=== PATIENT | female | born 1995 | race Caucasian/White ===

== ENCOUNTER 2022-06-25 16:29 | Outpatient (CLI) | payer BC, SELFPAY ==
[2022-06-25 17:09] LABS: Alanine Aminotransferase 20 U/L (6-35); Albumin Level 4.2 g/dL (3.5-5.1); Alkaline Phosphatase 51 U/L (38-126); Aspartate Amino Transferase 33 U/L (14-36); Bilirubin,Total 0.8 mg/dL (0.2-1.3)
== END 2022-06-25 16:30 | disposition home or self-care (01) ==
LOC: ANHLAB 16:31
PROVIDERS: PCP Family Medicine; Visit Provider Nurse Practitioner Family
DX: B35.3 Tinea pedis (principal); B35.1 Tinea unguium
CPT/HCPCS: 36415; 80076

== ENCOUNTER 2022-07-25 07:26 | Outpatient (CLI) | payer BC, SELFPAY ==
--- NOTE | ~2022-07-25 | MR_ITS ---
EXAMINATION: MR brain/brain stem wo con DATE: 07/25/2022 08:00 INDICATION: Migraine headache. TECHNIQUE: Magnetic resonance imaging (MRI) of the brain and brainstem was performed without intraven ous contrast. COMPARISON: None. FINDINGS: There is no acute intracranial hemorrhage, acute ischemic infarct, or abnormal mass lesion. The ventricles are normal in size. The orbits are normal. The mastoid air cells are normal. The para nasal sinuses are clear. IMPRESSION: 1. Normal brain. Reviewed, dictated and finalized at location A. TGENOLOGY TEACHER IMPRESSION: 1. Normal brain.
== END 2022-07-25 07:27 ==
PROVIDERS: PCP Family Medicine; Visit Provider Nurse Practitioner Family
DX: G43.909 Migraine, unspecified, not intractable, without status migrainosus (principal)
CPT/HCPCS: 70551

== ENCOUNTER 2022-09-13 09:07 | Outpatient (CLI) | payer BC, SELFPAY ==
[2022-09-13 10:01] LABS: Alanine Aminotransferase 22 U/L (6-35); Alkaline Phosphatase 61 U/L (38-126); Aspartate Amino Transferase 29 U/L (14-36); Bilirubin,Total 0.4 mg/dL (0.2-1.3)
== END 2022-09-13 09:08 | disposition home or self-care (01) ==
PROVIDERS: PCP Family Medicine; Visit Provider Nurse Practitioner Family
DX: B35.3 Tinea pedis (principal); B35.1 Tinea unguium
CPT/HCPCS: 36415; 80076

== ENCOUNTER 2022-12-20 13:51 | Outpatient (CLI) | payer BC, SELFPAY ==
[2022-12-20 15:23] LABS: Alanine Aminotransferase 17 U/L (6-35); Albumin Level 4.2 g/dL (3.5-5.1); Alkaline Phosphatase 58 U/L (38-126); Anion Gap 6 mmol/L (8-16); Aspartate Amino Transferase 25 U/L (14-36); Bilirubin,Total 0.7 mg/dL (0.2-1.3); Blood Urea Nitrogen 15 mg/dL (7-17); Calcium 8.7 mg/dL (8.4-10.2); Carbon Dioxide 28 mmol/L (22-30); Chloride 104 mmol/L (98-107); Cholesterol 167 mg/dL (0-200); Estimated Glomerular Filt Rate > 60; Glucose 91 mg/dL (65-110); HDL Direct 47 mg/dL; Potassium 3.5 mmol/L (3.4-5.0); Sodium 138 mmol/L (137-145); Triglycerides 121 mg/dL (<150)
[2022-12-20 15:26] LABS: Basophils Percent Auto 0.6 % (0.2-1.2); Eosinophils Absolute Auto 0.1 K/mm3 (0-0.3); Eosinophils Percent Auto 1.8 % (0-4.4); Hematocrit 41.9 % (37.0-47.0); Hemoglobin 13.8 g/dL (12.0-15.0); Immature Granulocyte Absolute 0.01 K/mm3 (0.00-0.031); Immature Granulocyte Percent A 0.2 % (0-0.5); Lymphocytes Absolute Auto 1.53 K/mm3 (0.9-3.2); Lymphocytes Percent Auto 30.7 % (18.3-44.2); Mean Corpuscular HGB Conc 32.9 g/dl (32-36); Mean Corpuscular Hemoglobin 31.2 pg (26-34); Mean Corpuscular Volume 94.8 fl (80-100); Mean Platelet Volume 10.5 fl (7.4-10.4); Monocytes Absolute Auto 0.5 K/mm3 (0.1-0.6); Monocytes Percent Auto 10.2 % (2.6-8.5); Neutrophils Absolute Auto 2.8 K/mm3 (1.3-6.7); Neutrophils Percent Auto 56.5 % (45.5-73.1); Platelet Count Result 232 k/mm3 (150-375); Red Blood Count 4.42 M/mm3 (4.2-5.4); Red Cell Distribution Width 11.7 % (11.5-14.5)
[2022-12-20 15:36] LABS: LDL Cholesterol Direct 95 mg/dL
[2022-12-20 16:37] LABS: Folic Acid 12.1 ng/mL (2.76->20)
[2022-12-20 16:41] LABS: Free T4 Free Thyroxine 1.39 ng/mL (0.78-2.19)
== END 2022-12-20 13:52 | disposition home or self-care (01) ==
LOC: ANHLAB 13:54
PROVIDERS: PCP Family Medicine; Visit Provider Family Medicine Sports Medicine
DX: Z00.00 Encounter for general adult medical examination without abnormal findings (principal); R51.9 Headache, unspecified; R63.5 Abnormal weight gain; B35.1 Tinea unguium; H92.03 Otalgia, bilateral; R35.0 Frequency of micturition
CPT/HCPCS: 36415; 80053; 80061; 82607; 82746; 84439; 84443; 85025

== ENCOUNTER 2024-08-22 09:58 | Outpatient (CLI) | payer BC, SELFPAY ==
--- NOTE | ~2024-08-22 | US_ITS ---
EXAMINATION: US OB <=14 wk fetus w TV INDICATION: Z34.90 - Encounter for supervision of normal , u... TECHNIQUE: Sonography of the pelvis was performed by transabdominal and transvaginal techniques. COMPARISON: None. RESULT: Uterus: 9.3 x 4.6 x 5.4 cm. Anteverted. Homogenous myometrium. Intrauterine gestational sac: Single present. Mean Sac Diameter: cm, corresponding gestational age w telida days. Yolk sac: 0.4 cm . Embryo: Single present. [place] rump length: 1.2 cm, corresponding gestational age 7 weeks, 3 days. G estational heart rate: present 142 bpm. Subgestational hematoma: 1.9 x 0.6 x 0.8 cm hypoechoic area adjacent to the gestational sac . Right ovary: 2.6 x 2.7 x 3.2 cm. Vascular flow is present. No adnexal mass. Left ovary: 2.4 x 1.5 x 1.9 cm. Vascular flow is present. No adnexal mass. Pelvis free fluid: None. IMPRESSION: Single, live intrauterine gestation. Estimated Gestational Age: 7 weeks, 3 days by crown rump length. BEE by ultrasound 04/07/2025. Small subgestational hematoma. Reviewed, dictated and finalized at location K. ENGER ATTENDANT IMPRESSION: Single, live intrauterine gestation. Estimated Gestational Age: 7 weeks, 3 days by crown rump length. BEE by ultras ound 04/07/2025. Small subgestational hematoma.
== END 2024-08-22 09:59 | disposition home or self-care (01) ==
LOC: MICIMG 10:04
PROVIDERS: PCP Family Medicine; Visit Provider Obstetrics & Gynecology
DX: Z34.90 Encounter for supervision of normal pregnancy, unspecified, unspecified trimester (principal); Z3A.00 Weeks of gestation of pregnancy not specified
CPT/HCPCS: 76801; 76817

== ENCOUNTER 2024-08-27 10:03 | Outpatient (CLI) | payer BC, SELFPAY ==
--- OUTSIDE RECORDS SUMMARY | 2024-08-27 10:27 | XMS_ITS | Patient Health Summary ---
Author Organization [facility] [employer] Address [address] [place] [address] Care Team Providers Care Plate Filler Name Role Phone Unavailable Primary Care Provider Unavailabl e Note from [facility],non-owned Affiliates and Associated Physician Practices is amultiple site organization consisting of ambulatory clinics and hospital sitesin [place], [place], [place] and [place]. This disclosure is being madepursuant to the Care Everywhere program and may not contain all information available regarding this patient. Last updated 18.[facility] [employer] Allergies No known active allergies Medications * Be aware that medications may not be up to date on this document. Alwaysverify current medications with the patient. * ondansetron (Zofran) 4 MG tablet(Started 08/01/2024) Take 1 (one) tablet by mouth every 6 hours as needed for Nausea/Vomiting Social History Tobacco Use Types Packs/Day Years Used Date Smoking Tobacco: Never Assessed Comments Yes Sex and Gender Information Value Date Recorded Sex Assigned at Not on file Gender Identity Not on file Sexual Orientation Not on file Last Filed Vital Signs Vital Sign Reading Time Taken Comments Blood Pressure 121/85 08/01/2024 9:00 AM RADIOLOGY EQUIPMENT SERVICER Pulse 72 08/01/2024 9:00 AM RADIOLOGY EQUIPMENT SERVICER Temperature 37.2 C (99 F) 08/01/2024 8:23 AM RADIOLOGY EQUIPMENT SERVICER Respiratory Rate 20 08/01/2024 9:00 AM RADIOLOGY EQUIPMENT SERVICER Oxygen Saturation 98% 08/01/2024 9:00 AM RADIOLOGY EQUIPMENT SERVICER Inhaled Oxygen Concentration - - Weight 90.7 kg (200 lb) 08/01/2024 8:23 AM RADIOLOGY EQUIPMENT SERVICER Height 170.2 cm (5' 7 ) 08/01/2024 8:23 AM RADIOLOGY EQUIPMENT SERVICER Body Mass Index 31.32 08/01/2024 8:23 AM RADIOLOGY EQUIPMENT SERVICER Procedures * URINALYSIS REFLEX MICROSCOPIC REFLEX CULTURE(Performed 08/01/2024) * HCG BLOOD QUALITATIVE(Performed 08/01/2024) Results * (ABNORMAL) URINALYSIS REFLEX MICROSCOPIC REFLEX CULTURE (08/01/2024 11:06 AM RADIOLOGY EQUIPMENT SERVICER) Color UA Yellow Yellow, Straw 08/01/2024 11:14 AM [facility] Clarity UA Clear Clear 08/01/2024 11:14 AM [facility] Glucose UA Normal Normal 08/01/2024 11:14 AM [facility] Bilirubin UA Negative Negative 08/01/2024 11:14 AM [facility] Ketone UA Trace(A) Negative 08/01/2024 11:14 AM [facility] Specific [place] UA 1.022 1.005 - 1.030 08/01/2024 11:14 AM [facility] Blood UA Negative Negative 08/01/2024 11:14 AM [facility] pH UA 6.5 5.0 - 9.0 pH 08/01/2024 11:14 AM [facility] Protein UA Negative Negative 08/01/2024 11:14 AM [facility] Urobilinogen UA Normal Normal mg/dL 025 11:14 AM [facility] Nitrite UA Negative Negative 08/01/2024 11:14 AM [facility] Leukocyte UA Negative Negative 08/01/2024 11:14 AM [facility] Urine URINE SPECIMEN OBTAINED BY CLEAN CATCH PROCEDURE / Unknown Collection / Unknown 08/01/2024 11:06 AM RADIOLOGY EQUIPMENT SERVICER 08/01/2024 11:10 AM [facility] Narrative [facility] - 08/01/2024 11:14 AM RADIOLOGY EQUIPMENT SERVICER Preet Kelly MD LAB - URINALYS IS ORDERABLES [facility] [address] [place] [address] * (ABNORMAL) HCG BLOOD QUALITATIVE (08/01/2024 8:50 AM RADIOLOGY EQUIPMENT SERVICER) HCG Qual Serum Positive(A ) Negative 08/01/2024 9:05 AM [facility] Blood BLOOD SPECIMEN / Unknown Venipuncture / Unknown 08/01/2024 8:50 AM RADIOLOGY EQUIPMENT SERVICER 08/01/2024 8:52 AM RADIOLOGY EQUIPMENT SERVICER Narrative [facility] - 08/01/2024 9:05 AM RADIOLOGY EQUIPMENT SERVICER Specimens containing human anti-mouse antibodies may exhibit false positive or false negative results. If qualitative interpretation is inconsistent with clinical evaluation, consider confirmation by an alternative hCG method. Preet Kelly MD LAB - CHEMISTR Y ORDERABLES Performing Organization Address City/State/[facility] Co de Phone Number [facility] [address] [place] [address]
--- OUTSIDE RECORDS SUMMARY | 2024-08-27 10:27 | XMS_ITS | Referral Summary ---
Author Organization [facility] Address [address] [place] [address] Care Team Providers Care Director Of Rooms Name Role Phone Unavailable Primary Care Provider Unavailabl e Source Comments [facility],non-owned Affiliates and Associated Physician Practices is amultiple site organization consisting of ambulatory clinics and hospital sitesin [place], [place], [place] and [place]. This disclosure is being madepursuant to the Care Everywhere program and may not contain all information available regarding this patient. Last updated 18.[facility] Encounters Date Type Department Care Team Description 08/01/2024 8:52 AM ADMINISTRATIVE OFFICE MANAGER - 08/01/2024 11:49 AM ADMINISTRATIVE OFFICE MANAGER Emergency ER at [address] [address] Preet Kelly MD at early stage (HCC) (Primary Dx) Discharge Disposition: Home or Self Care from Last 3 Months Allergies No known active allergies Medications * Be aware that medications may not be up to date on this document. Alwaysverify current medications with the patient. Medication Sig Dispensed Refills Start Date End Date Status ondansetron (Zofran) 4 MG tablet Take 1 (one) tablet by mouth every 6 hours as needed for Nausea/Vomiting 20 tablet 08/01/2024 Active Social History Tobacco Use Types Packs/Day Years Used Date Smoking Tobacco: Never Assessed Comments Yes Sex and Gender Information Value Date Recorded Sex Assigned at Not on file Gender Identity Not on file Sexual Orientation Not on file Last Filed Vital Signs Vital Sign Reading Time Taken Comments Blood Pressure 121/85 08/01/2024 9:00 AM ADMINISTRATIVE OFFICE MANAGER Pulse 72 08/01/2024 9:00 AM ADMINISTRATIVE OFFICE MANAGER Temperature 37.2 C (99 F) 08/01/2024 8:23 AM ADMINISTRATIVE OFFICE MANAGER Respiratory Rate 20 08/01/2024 9:00 AM ADMINISTRATIVE OFFICE MANAGER Oxygen Saturation 98% 08/01/2024 9:00 AM ADMINISTRATIVE OFFICE MANAGER Inhaled Oxygen Concentration - - Weight 90.7 kg (200 lb) 08/01/2024 8:23 AM ADMINISTRATIVE OFFICE MANAGER Height 170.2 cm (5' 7 ) 08/01/2024 8:23 AM ADMINISTRATIVE OFFICE MANAGER Body Mass Index 31.32 08/01/2024 8:23 AM ADMINISTRATIVE OFFICE MANAGER Plan of Treatment Not on file Procedures Procedure Name Priority Date/Time Associated Diagnosis Comments URINALYSIS REFLEX MICROSCOPIC REFLEX CULTURE STAT 08/01/2024 11:06 AM ADMINISTRATIVE OFFICE MANAGER HCG BLOOD QUALITATIVE STAT 08/01/2024 8:50 AM ADMINISTRATIVE OFFICE MANAGER from Last 3 Months Results * (ABNORMAL) URINALYSIS REFLEX MICROSCOPIC REFLEX CULTURE (08/01/2024 11:06 AM ADMINISTRATIVE OFFICE MANAGER) Color UA Yellow Yellow, Straw 08/01/2024 11:14 AM [facility] Clarity UA Clear Clear 08/01/2024 11:14 AM [facility] Glucose UA Normal Normal 08/01/2024 11:14 AM [facility] Bilirubin UA Negative Negative 08/01/2024 11:14 AM [facility] Ketone UA Trace(A) Negative 08/01/2024 11:14 AM [facility] Specific [place] UA 1.022 1.005 - 1.030 08/01/2024 11:14 AM [facility] Blood UA Negative Negative 08/01/2024 11:14 AM [facility] pH UA 6.5 5.0 - 9.0 pH 08/01/2024 11:14 AM [facility] Protein UA Negative Negative 08/01/2024 11:14 AM [facility] Urobilinogen UA Normal Normal mg/dL 025 11:14 AM [facility] Nitrite UA Negative Negative 08/01/2024 11:14 AM [facility] Leukocyte UA Negative Negative 08/01/2024 11:14 AM [facility] Urine URINE SPECIMEN OBTAINED BY CLEAN CATCH PROCEDURE / Unknown Collection / Unknown 08/01/2024 11:06 AM ADMINISTRATIVE OFFICE MANAGER 08/01/2024 11:10 AM ADMINISTRATIVE OFFICE MANAGER Narrative [facility] - 08/01/2024 11:14 AM ADMINISTRATIVE OFFICE MANAGER Preet Kelly MD LAB - URINALYS IS ORDERABLES Performing Organization Address [facility] Co de Phone Number [facility] [address] [place] [address] * (ABNORMAL) HCG BLOOD QUALITATIVE (08/01/2024 8:50 AM ADMINISTRATIVE OFFICE MANAGER) HCG Qual Serum Positive(A ) Negative 08/01/2024 9:05 AM ADMINISTRATIVE OFFICE MANAGER [facility] Blood BLOOD SPECIMEN / Unknown Venipuncture / Unknown 08/01/2024 8:50 AM ADMINISTRATIVE OFFICE MANAGER 08/01/2024 8:52 AM ADMINISTRATIVE OFFICE MANAGER Narrative [facility] - 08/01/2024 9:05 AM ADMINISTRATIVE OFFICE MANAGER Specimens containing human anti-mouse antibodies may exhibit false positive or false negative results. If qualitative interpretation is inconsistent with clinical evaluation, consider confirmation by an alternative hCG method. Preet Kelly MD LAB - CHEMISTR Y ORDERABLES Performing Organization Address [facility] Co de Phone Number [facility] [address] [place] [address] from Last 3 Months Mervat Solorio Personal/Family Self 1995
--- OUTSIDE RECORDS SUMMARY | 2024-08-27 10:27 | XMS_ITS | Clinical Summary ---
Author Organization [facility] Address [address] [place] [address] Care Team Providers Care Social Service Director Name Role Phone Unavailable Primary Care Provider Unavailabl e Source Comments [facility],non-owned Affiliates and Associated Physician Practices is amultiple site organization consisting of ambulatory clinics and hospital sitesin [place], [place], [place] and [place]. This disclosure is being madepursuant to the Care Everywhere program and may not contain all information available regarding this patient. Last updated 18.[facility] Allergies No known active allergies Medications * Be aware that medications may not be up to date on this document. Alwaysverify current medications with the patient. Medication Sig Dispensed Refills Start Date End Date Status ondansetron (Zofran) 4 MG tablet Take 1 (one) tablet by mouth every 6 hours as needed for Nausea/Vomiting 20 tablet 08/01/2024 Active Encounters Date Type Department Care Team Description 08/01/2024 8:52 AM POURED CONCRETE WALL TECHNICIAN - 08/01/2024 11:49 AM POURED CONCRETE WALL TECHNICIAN Emergency ER at [address] [address] Preet Kelly MD at early stage (HCC) (Primary Dx) Discharge Disposition: Home or Self Care from Last 3 Months Social History Tobacco Use Types Packs/Day Years Used Date Smoking Tobacco: Never Assessed Comments Yes Sex and Gender Information Value Date Recorded Sex Assigned at Not on file Gender Identity Not on file Sexual Orientation Not on file Last Filed Vital Signs Vital Sign Reading Time Taken Comments Blood Pressure 121/85 08/01/2024 9:00 AM POURED CONCRETE WALL TECHNICIAN Pulse 72 08/01/2024 9:00 AM POURED CONCRETE WALL TECHNICIAN Temperature 37.2 C (99 F) 08/01/2024 8:23 AM POURED CONCRETE WALL TECHNICIAN Respiratory Rate 20 08/01/2024 9:00 AM POURED CONCRETE WALL TECHNICIAN Oxygen Saturation 98% 08/01/2024 9:00 AM POURED CONCRETE WALL TECHNICIAN Inhaled Oxygen Concentration - - Weight 90.7 kg (200 lb) 08/01/2024 8:23 AM POURED CONCRETE WALL TECHNICIAN Height 170.2 cm (5' 7 ) 08/01/2024 8:23 AM POURED CONCRETE WALL TECHNICIAN Body Mass Index 31.32 08/01/2024 8:23 AM POURED CONCRETE WALL TECHNICIAN Plan of Treatment Health Maintenance Due Date Last Done Comments PAP SMEAR 1995 HIV SCREENING 2011 HEPATITIS C SCREENING 09/03/2014 DTAP/TDAP/TD VACCINES (1 - Tdap) 2015 HEPATITIS B VACCINE (1 of 3 - 19+ 3-dose series) 2015 COVID-19 VACCINE ( - 2023-2 5 season) 2024 INFLUENZA VACCINE (#1) 2024 DEPRESSION SCREENING 07/15/2024 ZOSTER VACCINE (1 of 2) 2046 Respiratory Syncytial Virus (RSV) Vaccine Pt: or over 60 yrs (1 - 1-dose 75+ series) 2071 HIB VACCINE Aged Out No longer eligi ble based on patient's age to complete this topic HPV VACCINE Aged Out No longer eligi ble based on patient's age to complete this topic MENINGOCOCCAL (Group B) VACCINE Aged Out No longer eligible based on patient's age to complete this topic MENINGOCOCCAL VACCINE Aged Out No michelle bob eligible based on patient's age to complete this topic PNEUMOCOCCAL VACCINE Aged Out No long er eligible based on patient's age to complete this topic Procedures Procedure Name Priority Date/Time Associated Diagnosis Comments URINALYSIS REFLEX MICROSCOPIC REFLEX CULTURE STAT 08/01/2024 11:06 AM POURED CONCRETE WALL TECHNICIAN HCG BLOOD QUALITATIVE STAT 08/01/2024 8:50 AM POURED CONCRETE WALL TECHNICIAN from Last 3 Months Results * (ABNORMAL) URINALYSIS REFLEX MICROSCOPIC REFLEX CULTURE (08/01/2024 11:06 AM POURED CONCRETE WALL TECHNICIAN) Color UA Yellow Yellow, Straw 08/01/2024 11:14 AM POURED CONCRETE WALL TECHNICIAN [facility] Clarity UA Clear Clear 08/01/2024 11:14 AM POURED CONCRETE WALL TECHNICIAN [facility] Glucose UA Normal Normal 08/01/2024 11:14 AM [facility] Bilirubin UA Negative Negative 08/01/2024 11:14 AM [facility] Ketone UA Trace(A) Negative 08/01/2024 11:14 AM [facility] Specific [place] UA 1.022 1.005 - 1.030 08/01/2024 11:14 AM [facility] Blood UA Negative Negative 08/01/2024 11:14 AM [facility] pH UA 6.5 5.0 - 9.0 pH 08/01/2024 11:14 AM [facility] Protein UA Negative Negative 08/01/2024 11:14 AM [facility] Urobilinogen UA Normal Normal mg/dL 025 11:14 AM [facility] Nitrite UA Negative Negative 08/01/2024 11:14 AM [facility] Leukocyte UA Negative Negative 08/01/2024 11:14 AM [facility] Urine URINE SPECIMEN OBTAINED BY CLEAN CATCH PROCEDURE / Unknown Collection / Unknown 08/01/2024 11:06 AM POURED CONCRETE WALL TECHNICIAN 08/01/2024 11:[address] [facility] Narrative [facility] - 08/01/2024 11:14 AM POURED CONCRETE WALL TECHNICIAN Preet Kelly MD LAB - URINALYS IS ORDERABLES Performing Organization Address City/[facility] Co ga Phone Number [facility] [address] [place], [place] [id number] * (ABNORMAL) HCG BLOOD QUALITATIVE (08/01/2024 8:50 AM POURED CONCRETE WALL TECHNICIAN) HCG Qual Serum Positive(A ) Negative 08/01/2024 9:05 AM [facility] Blood BLOOD SPECIMEN / Unknown Venipuncture / Unknown 08/01/2024 8:50 AM POURED CONCRETE WALL TECHNICIAN 08/01/2024 8:[address] [facility] Narrative [facility] - 08/01/2024 9:05 AM POURED CONCRETE WALL TECHNICIAN Specimens containing human anti-mouse antibodies may exhibit false positive or false negative results. If qualitative interpretation is inconsistent with clinical evaluation, consider confirmation by an alternative hCG method. Preet Kelly MD LAB - CHEMISTR Y ORDERABLES [facility] [address] [place] [address] from Last 3 Months Mervat Solorio Personal/Family Self 1995
[2024-08-27 12:00] LABS: Hematocrit 38.6 % (37.0-47.0); Mean Corpuscular HGB Conc 33.7 g/dl (32-36); Mean Corpuscular Hemoglobin 31.6 pg (26-34); Mean Corpuscular Volume 93.7 fl (80-100); Platelet Count Result 226 k/mm3 (150-375); Red Blood Count 4.12 M/mm3 (4.2-5.4); Red Cell Distribution Width 11.9 % (11.5-14.5); White Blood Count 12.2 K/mm3 (4.5-10.0)
[2024-08-27 12:49] LABS: HIV 1/2 Ab P24 Ag Result Negative (Negative)
[2024-08-27 13:00] LABS: Hepatitis B Surface Antigen Negative (Negative); Rubella IgG Antibody 10.5 IU/ML
[2024-08-27 13:53] LABS: Rapid Plasma Reagin Non-Reactive (NonReactive)
[2024-08-27 14:23] LABS: Glucose 1 Hour PP 50gm Dose 64 mg/dL
[2024-08-28 15:14] LABS: CMV IgG Antibody <0.60 U/mL; Varicella IgG Antibody <1.00 S/CO
== END 2024-08-27 10:04 | disposition home or self-care (01) ==
LOC: ANHLAB 10:04
PROVIDERS: PCP Family Medicine; Visit Provider Obstetrics & Gynecology
DX: N91.2 Amenorrhea, unspecified (principal)
CPT/HCPCS: 36415; 82947; 84702; 85027; 86592; 86644; 86703; 86747; 86762; 86787; 86850; 86900; 86901; 87086; 87340; G0432

== ENCOUNTER 2024-11-21 07:42 | Outpatient (CLI) | payer BC, SELFPAY ==
--- NOTE | ~2024-11-21 | US_ITS ---
EXAMINATION: US OB /maternal detail DATE: 11/21/2024 08:42 INDICATION: Encounter for supervision of normal TECHNIQUE: Multiple obstetric sonographic images performed. FINDINGS: There is a single living fetus in breech presentation. The placenta is posterior and appears to exte nd across the expected region of the internal cervical os which is however not clearly visualized on the transabdominal imaging. Amniotic fluid volume is subjectively normal heart rate of 147 mohit ts per minute. The following anatomy was identified as normal: Ventricles, choroid plexus, falx and cava septum pellucidum Cerebellum and cisterna magna Nuchal fold Upper lip Spine Diaphragm Stomach Kidneys Bladder 3 vessel cord and cord insertion Bilateral upper and lower extremities including hands and feet The left ventricular outflow tract view. The four-chamber heart view appears normal but is suboptimal . The right ventricular outflow tract views are nondiagnostic. The following biometric data were obtained: BPD: 4.6 cm -> 20 weeks 0 days Head circumference: 17.9 cm -> 20 weeks 2 days Abdominal circumference: 14.5 cm -> 19 weeks 6 days Femur length: 3.3 cm -> 20 weeks 2 days These measurements are concordant. Head circumference to abdominal circumference ratio: 1.23 (normal range 1.07-1.25). Estimated weight: 332 g (+/-) 50 g. or 12 oz. (+/-) 2 oz. IMPRESSION: 1. Single living fetus with breech presentation with heart rate of 147 bpm. 2. Likely persistent previa with posterior placenta which appears to extend across the region of the internal cervical os which is poorly visualized on transabdominal imaging. 3. Estimated weight is 35th percentile by Hadlock criteria when 04/08/2025 is used as the BEE. P lease correlate with clinical information or earlier ultrasounds for most accurate BEE. 3. Nondiagnostic right ventricular outflow tract view, normal left ventricular outflow tract view and normal-appearing but suboptimal four-chamber heart view. Otherwise normal survey. Reviewed, dictated and finalized at location A. IMPRESSION: 1. Single living fetus with breech presentation with heart rate of 147 b pm. 2. Likely persistent previa with posterior placenta which appears to extend acr oss the region of the internal cervical os which is poorly visualized on transa bdominal imaging. 3. Estimated weight is 35th percentile by Hadlock criteria when 04/08/2025 is used as the BEE. Please correlate with clinical information or earlier ultr asounds for most accurate BEE. 3. Nondiagnostic right ventricular outflow tract view, normal left ventricular outflow tract view and normal-appearing but suboptimal four-chamber heart view. Otherwise normal survey.
== END 2024-11-21 07:43 | disposition home or self-care (01) ==
LOC: MICIMG 07:44
PROVIDERS: PCP Family Medicine; Visit Provider Obstetrics & Gynecology
DX: Z34.90 Encounter for supervision of normal pregnancy, unspecified, unspecified trimester (principal)
CPT/HCPCS: 76805

== ENCOUNTER 2025-01-03 03:17 | Observation (INO) | payer BC, SELFPAY ==
[2025-01-03 03:20] VITALS: BMI 36.6
[2025-01-03 03:48] LABS: Add Urine Microscopic? NO; Appearance Urine Clear (Clear); Bilirubin Urine Negative (Negative); Blood Urine Negative (Negative); Color Urine Yellow (Yellow); Glucose Urine UA Negative (Negative); Ketones Urine Negative (Negative); Leukocyte Esterase Ur Negative LEU/UL (Negative); Nitrate Urine Negative (Negative); Protein Urine Negative (Negative); Specific Grav Ur 1.005 (1.001-1.035); Urobilinogen Urine 0.2 mg/dL (<2.0); pH Urine 5.5 (5.0-9.0)
[2025-01-03 04:11] VITALS: BP 126/82; PULSE 95
[2025-01-03 04:16] VITALS: BP 122/82; PULSE 100
[2025-01-03 04:31] VITALS: BP 118/75; PULSE 90
--- NOTE | 2025-01-03 04:31 | OBADM ---
This patient, Mervat Solorio, admitted to the OB room OB Post 117 for observation. Patient/family oriented to hospital policies and general routines including ID bracelet, bed and alarms, visiting hours, pain management, procedures, bathroom and other care routines, personal items, smoking policy, room service/diet, and visiting hours. Patient/Family are encouraged to report perceived risks to care and to ask questions if they do not understand what they are told or what they should do.
--- NOTE | 2025-01-04 14:19 | PM.OBTRLD ---
OB - Triage/Final Diagnosis Visit Information Date of evaluation: 01/03/25 Reason for evaluation: threatened labor Comments/Additional reasons for admission: I have assessed the risk for this patient, Mervat Solorio, and determined that she would benefit from observation care. Evaluation Laboratory results: Laboratory Tests 01/03/25 03:29 Urine Color Yellow Urine Appearance Clear Urine pH 5.5 Ur Specific [place] 1.005 Urine Protein Negative Urine Glucose (UA) Negative Urine Ketones Negative Ur Blood (Man) Negative Urine Nitrate Negative Urine Bilirubin Negative Urine Urobilinogen 0.2 Leukocyte Esterase Rfl Negative
== END 2025-01-03 04:45 | disposition home or self-care (01) ==
PROVIDERS: Admitting Provider Student in an Organized Health Care Education/Training Program; Visit Provider Student in an Organized Health Care Education/Training Program
DX: O47.02 False labor before 37 completed weeks of gestation, second trimester (principal); Z3A.26 26 weeks gestation of pregnancy
CPT/HCPCS: 81003; G0378; G0379

== ENCOUNTER 2025-01-16 08:39 | Outpatient (CLI) | payer BC, SELFPAY ==
--- NOTE | ~2025-01-16 | US_ITS ---
US OB follow up 01/16/2025 09:15 Indication: Placenta previa Procedure: Real-time Limited obstetrical ultrasound using transabdominal technique Comparison: Ultrasound dated 11/21/2024 and 08/22/2024 Findings: There is a single living intrauterine in vertex presentation. heart rate is 151 BPM. Cervical length 4.4 cm. Placenta margin to the cervix is 2.8 cm. Placenta is posterior. Amn iotic fluid is subjectively normal. Impression: 1: Single living intrauterine in vertex presentation. 2: Posterior low-lying placenta measuring 2.8 cm to the cervix. Reviewed, dictated and finalized at location A. Impression: 1: Single living intrauterine in vertex presentation. 2: Posterior low-lying placenta measuring 2.8 cm to the cervix.
== END 2025-01-16 08:40 | disposition home or self-care (01) ==
LOC: MICIMG 08:40
PROVIDERS: PCP Obstetrics & Gynecology; Visit Provider Obstetrics & Gynecology
DX: O44.00 Complete placenta previa NOS or without hemorrhage, unspecified trimester (principal); Z3A.00 Weeks of gestation of pregnancy not specified
CPT/HCPCS: 76816

== ENCOUNTER 2025-02-02 12:33 | Outpatient (CLI) | payer BC, SELFPAY ==
--- OUTSIDE RECORDS SUMMARY | 2025-02-02 12:37 | XMS_ITS | Clinical Summary ---
Author Organization [facility] Address [address] [place] [address] Care Team Providers Care Zone Supervisor Firearms Name Role Phone Kilo Cruz MD Primary Care Provider [phone] Allergies Active Allergy Reactions Criticality Noted Date Comments Penicillins Hives Medium 05/07/2019 Medications naproxen 500 MG tablet Take 1 tablet (500 mg total) by mouth 2 (two) times daily with meals. 60 tablet 05/07/2019 Active Social History Tobacco Use Types Packs/Day Years Used Date Smoking Tobacco: Never Assessed Comments No Sex and Gender Information Value Date Recorded Sex Assigned at Not on file Legal Sex Female 11:01 AM CDT Gender Identity Not on file Sexual Orientation Not on file Last Filed Vital Signs Vital Sign Reading Time Taken Comments Blood Pressure 107/57 07/16/2020 7:46 PM DOG HANDLER OR TRAINER Pulse 77 07/16/2020 7:46 PM DOG HANDLER OR TRAINER Temperature 36.4 C (97.5 F) 07/16/2020 4:26 PM DOG HANDLER OR TRAINER Respiratory Rate 14 07/16/2020 7:46 PM DOG HANDLER OR TRAINER Oxygen Saturation 100% 07/16/2020 4:26 PM DOG HANDLER OR TRAINER Inhaled Oxygen Concentration - - Weight 79.4 kg (175 lb) 07/16/2020 4:28 PM DOG HANDLER OR TRAINER Height 170.2 cm (5' 7) 07/16/2020 4:28 PM DOG HANDLER OR TRAINER Body Mass Index 27.41 07/16/2020 4:28 PM DOG HANDLER OR TRAINER Plan of Treatment Health Maintenance Due Date Last Done Comments Cervical Cancer Screening Pa p Smear (Age 21 to 29) Every 3 Years 1996 Cervical Cancer Screening 1996 Annual Physical 1999 Hepatitis C 2014 DTaP, Tdap and Td Vaccines ( 1 - Tdap) 2015 Hepatitis B Vaccines (1 of 3 - 19+ 3-dose series) 2015 HPV Vaccines (1 - 3-dose SCD M series) 2023 COVID-19 Vaccine (1 - 2023-2 5 season) 2024 Meningococcal B Vaccine Aged Out No l onger eligible based on patient's age to complete this topic Meningococcal Vaccine Aged Out No michelle bob eligible based on patient's age to complete this topic Pneumococcal Vaccine: Pediat rics (0 to 5 Years) and At-Risk Patients (6 to 49 Years) Aged Out No longer eligible b ased on patient's age to complete this topic RSV Immunizations Under 20 Months Aged Out No longer eligible based on patient's age to complete this topic [place] [facility] [place] Teams Zone Supervisor Firearms Relationship Specialty Start Date End Date Kilo Cruz MD [address] [place] [address] PCP - General FAMILY PRACTICE 05/07/19
--- OUTSIDE RECORDS SUMMARY | 2025-02-02 12:37 | XMS_ITS | Clinical Summary ---
Author Organization [facility] Address [address] [facility] [place] [place] [address] Care Team Providers Care Production Control Manager Name Role Phone Unavailable Primary Care Provider Unavailabl e Source Comments [facility],non-owned Affiliates and Associated Physician Practices is amultiple site organization consisting of ambulatory clinics and hospital sitesin [place], [place], [place] and [place]. This disclosure is being madepursuant to the Care Everywhere program and may not contain all information available regarding this patient. Last updated 18.[facility] Allergies Active Allergy Reactions Criticality Noted Date Comments Azithromycin Unknown 12/08/2024 Penicillins Urticaria Medium 12/08/2024 Medications * Be aware that medications may not be up to date on this document. Alwaysverify current medications with the patient. ondansetron (Zofran) 4 MG tablet Take 1 (one) tablet by mouth every 6 hours as needed for Nausea/Vomi ting 20 tablet 08/01/2024 Active Encounters Date Type Department Care Team Description 01/12/2025 Telephone On license of [facility] [address] [place] [address] Gianna Ahmadi RN Appointment (Called patient to see if she needed to reschedule FU anatomy appt. ) 12/15/2024 12:57 PM CDT - 12/15/2024 11:59 PM CDT Hospital Encounter On license of [facility] [address] [place] [id number] Jb Moscoso MD Discharge Disposition: Home or Self Care 11/24/2024 Telephone On license of [facility] [address] [place] [address] Hali Dc Appointment from Last 3 Months Social History Tobacco Use Types Packs/Day Years Used Date Smoking Tobacco: Never Assessed Estimated Date of Delivery Comme nts Yes 04/10/2025 Based on last me nstrual period of 07/04/2024 Sex and Gender Information Value Date Recorded Sex Assigned at Not on file Legal Sex Female 8:19 AM LOAN SECRETARY Gender Identity Not on file Sexual Orientation Not on file Last Filed Vital Signs Vital Sign Reading Time Taken Comments Blood Pressure 121/85 08/01/2024 9:00 AM LOAN SECRETARY Pulse 72 08/01/2024 9:00 AM LOAN SECRETARY Temperature 37.2 C (99 F) 08/01/2024 8:23 AM LOAN SECRETARY Respiratory Rate 20 08/01/2024 9:00 AM LOAN SECRETARY Oxygen Saturation 98% 08/01/2024 9:00 AM LOAN SECRETARY Inhaled Oxygen Concentration - - Weight 90.7 kg (200 lb) 08/01/2024 8:23 AM LOAN SECRETARY Height 170.2 cm (5' 7) 08/01/2024 8:23 AM LOAN SECRETARY Body Mass Index 31.32 08/01/2024 8:23 AM LOAN SECRETARY Plan of Treatment Health Maintenance Due Date Last Done Comments HIV SCREENING 2011 HEPATITIS C SCREENING 09/03/2014 DTAP/TDAP/TD VACCINES (1 - Tdap) 2015 HEPATITIS B VACCINE (1 of 3 - 19+ 3-dose series) 2015 PAP SMEAR 2017 HPV VACCINE (1 - 3-dose SCDM series) 2023 COVID-19 VACCINE (1 - 2023-2 5 season) 2024 DEPRESSION SCREENING 07/15/2024 OB-ONE HOUR GLUCOSE 01/02/2025 OB-TDAP CURRENT 01/09/2025 OB-RHOGAM INJECTION 01/16/2025 INFLUENZA VACCINE (#1) 2025 Respiratory Syncytial Virus (RSV) Vaccine Pt: or over 60 yrs (1 - Risk 1-dose series) 03/15/2025 ZOSTER VACCINE (1 of 2) 2046 HIB VACCINE Aged Out No longer eligi ble based on patient's age to complete this topic MENINGOCOCCAL (Group B) VACC INE SHARED DECISION-MAKING Aged Out No longer eligibl e based on patient's age to complete this topic MENINGOCOCCAL GROUPS A/C/Y/W VACCINE Aged Out No longer eligible b ased on patient's age to complete this topic PNEUMOCOCCAL VACCINE Aged Out No long er eligible based on patient's age to complete this topic Procedures Procedure Name Priority Date/Time Associated Diagnosis Comments SONOGRAM - COMPLETE Routine 12/15/2024 1 2:49 PM CDT Encounter for anatomic survey (HCC) 23 weeks gestation of (HCC) Obesity affecting in second trimester, unspecified obesity type (HCC) from Last 3 Months Results * SONOGRAM - COMPLETE (12/15/2024 12:49 PM CDT) Linked Results Indication ======== Incomplete Heart Views on Outside Scan History ====== OB History 1 Lab Tests Test Date Result NIPT Low risk, Male Maternal Assessment Physical Exam Height 170 cm, 5 ft 7 in. Weight 106 kg, 234 lb. Initial weight 95 kg, 210 lb. BMI 36.65 kg/m . Initial BMI 32.89 kg/m . Weight gain 11 kg, 24 lb Method ====== Transabdominal and transvaginal ultrasound. View: Sufficient ========= Fisher . Number of fetuses: 1 Dating ====== Date Details Gest. age BEE LMP 07/04/2024 23 w + 3 d 04/10/2025 U/S 12/15/2024 based upon AC, BPD, Femur, HC 23 w + 6 d 04/07/2025 Assigned dating based on the LMP, selected on 12/15/2024 23 w + 3 d 04/10/2025 General Evaluation Cardiac activity present. FHR 134 bpm. Presentation: cephalic Placenta: Placental site: low-lying, posterior. Low-Lying Umbilical cord: Cord vessels: 3 vessel cord. Insertion site: normal insertion Amniotic fluid: Amount of AF: normal. MVP 4.2 cm Biometry BPD 54.3 mm 22w 4d 15% Hadlock HC 217.7 mm 23w 6d 49% Hadlock Cerebellum tr 28.0 mm 99% [place] AC 201.5 mm 24w 5d 82% Hadlock Femur 43.0 mm 24w 0d 60% Hadlock Humerus 40.6 mm 24w 4d 76% [place] HC / AC 1.08 -/- Hadlock Weight Calculation: EFW 682 g 81% Hadlock EFW (lb,oz) 1 lb 8 oz EFW by Hadlock ([id number]) appropriate Growth Overview Exam date GA BPD (mm) HC (mm) AC (mm) FL (mm) HL (mm) EFW (g) 12/15/2024 23w 3d 54.3 15% 217.7 49% 201.5 82% 43 60% 40.6 76% 682 81% Anatomy The following structures appear normal: Head / Neck Cranium. Lateral ventricles. Choroid plexus. Midline falx. Cavum septi pellucidi. Cerebellum. Cisterna magna. Thalami. Face Profile. Nose. Orbits. Heart / Thorax 4-chamber view. RVOT view. LVOT view. 3-vessel view. 3-osfgil-dzlcxwl view. Situs. Aortic arch view. Bicaval view. Ductal arch view. Interventricular septum. Great vessels. Right lung. Left lung. Diaphragm. Abdomen Cord insertion. Stomach. Kidneys. Bladder. Genitals. Extremities / Skeleton Arms. Left hand. Legs. Feet. The following structures could not be adequately visualized: Spine Cervical spine. Thoracic spine. Lumbar spine. Sacral spine. Extremities / Skeleton Right hand. Spine other: Normal SAG spine, Suboptimal Transverse sex: male. Maternal Structures Cervix reassuring Approach - Transvaginal: Cervical length 5.10 cm Right Ovary Not visualized Appearance: Adnexa appears normal Left Ovary Not visualized Appearance: Adnexa appears normal Low-lying placenta Impression ========= Single live intrauterine at 23w3d The size is AGA The amniotic fluid volume is normal The transvaginal cervical length is reassuring Posterior low lying placenta is appreciated Incomplete anatomic survey No major malformations were seen within the limitations of ultrasound Follow-up ======== Ultrasound in 4 weeks to assess anatomy not seen optimally on today's ultrasound Assess size in 4 weeks [facility] [employer] PACS Anatomical Region Laterality Modality Other 12/15/2024 12:4 9 PM CDT us Beau Pelletier MD [facility] ORDERABLES Edited Result - Final from Last 3 Months Insurance
[2025-02-02 14:18] LABS: Hematocrit 36.8 % (37.0-47.0); Hemoglobin 11.9 g/dL (12.0-15.0); Immature Granulocyte Percent A 0.7 % (0-0.5); Lymphocytes Absolute Auto 1.94 K/mm3 (0.9-3.2); Mean Corpuscular HGB Conc 32.3 g/dl (32-36); Mean Corpuscular Hemoglobin 29.2 pg (26-34); Mean Corpuscular Volume 90.4 fl (80-100); Nucleated Red Blood Cells Absolute Auto 0.000 K/mm3 (0.0-0.012); Nucleated Red Blood Cells Perc 0.0 % (0.0-0.2); Platelet Count Result 232 k/mm3 (150-375); Red Blood Count 4.07 M/mm3 (4.2-5.4); White Blood Count 13.4 K/mm3 (4.5-10.0)
[2025-02-02 14:42] LABS: Glucose 1 Hour PP 50gm Dose 123 mg/dL
[2025-02-02 15:10] LABS: Syphilis IgG/IgM Antibody Non-Reactive (Nonreactive)
[2025-02-02 15:23] LABS: HIV 1/2 Ab P24 Ag Result Negative (Negative)
== END 2025-02-02 12:34 | disposition home or self-care (01) ==
PROVIDERS: PCP Obstetrics & Gynecology; Visit Provider Obstetrics & Gynecology
DX: Z34.90 Encounter for supervision of normal pregnancy, unspecified, unspecified trimester (principal); Z3A.00 Weeks of gestation of pregnancy not specified
CPT/HCPCS: 36415; 82947; 85025; 86593; 86703; G0432

== ENCOUNTER 2025-02-13 08:13 | Outpatient (CLI) | payer BC, SELFPAY ==
--- NOTE | ~2025-02-13 | US_ITS ---
EXAMINATION: US OB follow up DATE: 02/13/2025 08:44 INDICATION: Supervision normal TECHNIQUE: Real-time transabdominal obstetric ultrasound. FINDINGS: Comparison to multiple prior studies sequentially, with oldest reviewed study dated 2024. There is a single living fetus in vertex presentation. The placenta is posterior without placenta pr evia. cardiac activity and movement is noted with a heart rate of 143 beats per minute. T he amniotic fluid volume is normal. MONICA measures 9.3 cm. The following biometric data were obtained: BPD: 81mm corresponds to gestational age 32 weeks 4 days. Head circumference: 294mm corresponds to gestational age 32 weeks 3 days. Abdominal circumference: 289mm corresponds to gestational age 32 weeks 6 days. Femur length: 62mm corresponds to gestational age 32 weeks 0 days. Estimated weight: 1996grams +/- 299grams 47.5%.] IMPRESSION: 1. Single living intrauterine in vertex presentation with an estimated gestational age of 32 weeks 3 days by inititial ultrasound. Appropriate interval growth. 2. Normal placenta. Reviewed, dictated and finalized at location A. IMPRESSION: 1. Single living intrauterine in vertex presentation with an estimat ed gestational age of 32 weeks 3 days by inititial ultrasound. Appropriate int erval growth. 2. Normal placenta.
--- NOTE | ~2025-02-13 | US_ITS ---
Please see ultrasound report dictated 02/13/2025 for details. Reviewed, dictated and finalized at location A.
== END 2025-02-13 08:14 | disposition home or self-care (01) ==
LOC: MICIMG 08:13
PROVIDERS: PCP Obstetrics & Gynecology; Visit Provider Obstetrics & Gynecology
DX: Z34.90 Encounter for supervision of normal pregnancy, unspecified, unspecified trimester (principal); Z3A.00 Weeks of gestation of pregnancy not specified
CPT/HCPCS: 76816; 76817

== ENCOUNTER 2025-03-04 09:24 | Outpatient (RCR) | payer BC, SELFPAY ==
--- NOTE | ~2025-03-04 | US_ITS ---
EXAMINATION: US OB BPP wo non-stress DATE: 03/04/2025 11:51 CDT INDICATION: Evaluate positioning TECHNIQUE: Real-time transabdominal obstetric ultrasound. FINDINGS: There is a single living fetus in vertex presentation. The placenta is posterior without placenta previa. Placental margin to the cervix 4.65 cm. cardiac activity and movement is noted with a heart rate of 143 beats per minute. MONICA is normal measuring 9.3 cm. Biophysical profile: breathin of 2 movement: 2 of 2 tone: 2 of 2 Amniotic flud pocket: 2 of 2 Total score: 8 of 8 IMPRESSION: 1. Single living intrauterine in vertex presentation. 2: Total biophysical profile score of 8/8. Reviewed, dictated and finalized at location A.
[2025-03-04 11:17] VITALS: BP 120/75; PULSE 92
== END 2025-04-14 17:41 | disposition other institution (70) ==
LOC: ANHOBOP 09:24
PROVIDERS: Visit Provider Obstetrics & Gynecology
DX: O36.8130 Decreased fetal movements, third trimester, not applicable or unspecified (principal); Z3A.34 34 weeks gestation of pregnancy
CPT/HCPCS: 59025; 76819

== ENCOUNTER 2025-03-16 15:31 | Outpatient (CLI) | payer BC, SELFPAY ==
--- OUTSIDE RECORDS SUMMARY | 2025-03-16 15:56 | XMS_ITS | Clinical Summary ---
Author Organization [facility] Address [address] [place] [address] Care Team Providers Care Personal Care Worker Name Role Phone Kilo Cruz MD Primary Care Provider Allergies Active Allergy Reactions Criticality Noted Date [...] Comments Blood Pressure 107/57 07/16/2020 7:46 PM SOFTBALL UMPIRE Pulse 77 07/16/2020 7:46 PM SOFTBALL UMPIRE Temperature 36.4 C (97.5 F) 07/16/2020 4:26 PM SOFTBALL UMPIRE Respiratory Rate 14 07/16/2020 7:46 PM SOFTBALL UMPIRE Oxygen Saturation 100% 07/16/2020 4:26 PM SOFTBALL UMPIRE Inhaled Oxygen Concentration - - Weight 79.4 kg (175 lb) 07/16/2020 4:28 PM SOFTBALL UMPIRE Height 170.2 cm (5' 7) 07/16/2020 4:28 PM SOFTBALL UMPIRE Body Mass Index 27.41 07/16/2020 4:28 PM SOFTBALL UMPIRE Plan of Treatment Health Maintenance Due Date [...] patient's age to complete this topic Insurance [facility] [place] Care Teams Personal Care Worker Relationship Specialty Start Date End Date Kilo Cruz MD [address] [place] [address] PCP - General FAMILY PRACTICE 05/07/19
--- OUTSIDE RECORDS SUMMARY | 2025-03-16 15:56 | XMS_ITS | Clinical Summary ---
Author Organization [facility] Address [address] [place] [address] Care Team Providers Care Rotary Veneer Machine Operator Name Role Phone Unavailable Primary Care Provider Unavailabl e Source Comments [facility],non-owned Affiliates and Associated Physician Practices is amultiple site organization consisting of ambulatory clinics and hospital sitesin [place], [place], [place] and [place]. This disclosure is being madepursuant to the Care Everywhere program and may not contain all information available regarding this patient. Last updated 18.[facility] Allergies Active Allergy Reactions Criticality Noted Date [...] Type Department Care Team Description 01/12/2025 Telephone [facility] [address] [place] [id number] Gianna Ahmadi RN Appointment (Called patient to see if she needed to reschedule FU anatomy appt. ) 12/15/2024 12:57 PM CDT - 12/15/2024 11:59 PM CDT Hospital Encounter [facility] [address] [place] [address] Jb Moscoso MD Discharge Disposition: Home or Self Care from Last 3 Months Social History Tobacco Use Types Packs/Day Years Used Date Smoking Tobacco: Never Assessed Estimated Date of Delivery Comme nts Yes 04/10/2025 Based on last me nstrual period of 07/04/2024 Sex and Gender Information Value Date Recorded Sex Assigned at Not on file Legal Sex Female 8:19 AM SEED CLEANING MACHINE OPERATOR Gender Identity Not on file Sexual Orientation Not on file Last Filed Vital Signs Vital Sign Reading Time Taken Comments Blood Pressure 121/85 08/01/2024 9:00 AM SEED CLEANING MACHINE OPERATOR Pulse 72 08/01/2024 9:00 AM SEED CLEANING MACHINE OPERATOR Temperature 37.2 C (99 F) 08/01/2024 8:23 AM SEED CLEANING MACHINE OPERATOR Respiratory Rate 20 08/01/2024 9:00 AM SEED CLEANING MACHINE OPERATOR Oxygen Saturation 98% 08/01/2024 9:00 AM SEED CLEANING MACHINE OPERATOR Inhaled Oxygen Concentration - - Weight 90.7 kg (200 lb) 08/01/2024 8:23 AM SEED CLEANING MACHINE OPERATOR Height 170.2 cm (5' 7) 08/01/2024 8:23 AM SEED CLEANING MACHINE OPERATOR Body Mass Index 31.32 08/01/2024 8:23 AM SEED CLEANING MACHINE OPERATOR Plan of Treatment Health Maintenance Due Date [...] 01/02/2025 OB-TDAP CURRENT 01/09/2025 OB-RHOGAM INJECTION 01/16/2025 OB-GROUP B STREP SCREEN 03/06/2025 INFLUENZA VACCINE (#1) 2025 Respiratory Syncytial Virus [...] 1 lb 8 oz EFW by Hadlock ([id number]) appropriate Growth Overview Exam date GA BPD [...] view. RVOT view. LVOT view. 3-vessel view. 1-ksboto-rzmufcb view. Situs. Aortic arch view. Bicaval view. [...] today's ultrasound Assess size in 4 weeks [facility] [employer] PACS Anatomical Region Laterality Modality Other 12/15/2024 12:4 9 PM CDT Beau Pelletier MD [facility] ORDERABLES Edited Result - Final from Last 3 Months Insurance
[2025-03-16 16:30] VITALS: BP 121/80; PULSE 94
[2025-03-16 16:43] LABS: Hematocrit 36.7 % (37.0-47.0); Hemoglobin 11.9 g/dL (12.0-15.0); Immature Granulocyte Percent A 0.5 % (0-0.5); Lymphocytes Absolute Auto 2.05 K/mm3 (0.9-3.2); Mean Corpuscular HGB Conc 32.4 g/dl (32-36); Mean Corpuscular Hemoglobin 28.7 pg (26-34); Mean Corpuscular Volume 88.6 fl (80-100); Nucleated Red Blood Cells Absolute Auto 0.000 K/mm3 (0.0-0.012); Nucleated Red Blood Cells Perc 0.0 % (0.0-0.2); Platelet Count Result 231 k/mm3 (150-375); Red Blood Count 4.14 M/mm3 (4.2-5.4); White Blood Count 13.8 K/mm3 (4.5-10.0)
[2025-03-16 16:44] LABS: Add Urine Microscopic? YES; Appearance Urine Clear (Clear); Glucose Urine UA 1+ mg/dL (Negative); Leukocyte Esterase Ur Negative LEU/UL (Negative); Nitrate Urine Negative (Negative); Non Pathogenic Casts 0-2; Specific Grav Ur 1.034 (1.001-1.035)
[2025-03-16 16:45] VITALS: BP 119/81; PULSE 85
[2025-03-16 16:49] LABS: Alanine Aminotransferase 23 U/L (6-35); Albumin Level 3.2 g/dL (3.5-5.1); Alkaline Phosphatase 136 U/L (38-126); Anion Gap 7 mmol/L (4-12); Aspartate Amino Transferase 30 U/L (14-36); Bilirubin,Total 0.2 mg/dL (0.2-1.3); Blood Urea Nitrogen 11 mg/dL (7-17); Calcium 8.8 mg/dL (8.4-10.2); Carbon Dioxide 19 mmol/L (22-30); Chloride 108 mmol/L (98-107); Estimated Glomerular Filt Rate > 60; Glucose 94 mg/dL (65-110); Potassium 3.6 mmol/L (3.4-5.0); Sodium 134 mmol/L (137-145); Total Protein 6.4 g/dL (6.3-8.2); Uric Acid 4.4 mg/dL (2.5-7.5)
[2025-03-16 17:00] VITALS: BP 121/73; PULSE 86
[2025-03-16 17:13] LABS: Total Protein Urine Random < 5 mg/dL; Ur Ttl Prot Creatinine Ratio < 0.02 mg/mg (0-0.20)
[2025-03-16 17:15] VITALS: BP 117/70; PULSE 90
[2025-03-16 17:30] VITALS: BP 122/79; PULSE 86
== END 2025-03-16 17:37 | disposition home or self-care (01) ==
LOC: ANHOBOP 15:54 → ANHOBPP 16:00
PROVIDERS: PCP Family Medicine; Visit Provider Obstetrics & Gynecology
DX: O13.9 Gestational [pregnancy-induced] hypertension without significant proteinuria, unspecified trimester (principal); Z3A.00 Weeks of gestation of pregnancy not specified
CPT/HCPCS: 36415; 59025; 80053; 81001; 82570; 84156; 84550; 85025; 99199

== ENCOUNTER 2025-03-25 08:23 | Outpatient (CLI) | payer BC, SELFPAY ==
--- NOTE | ~2025-03-25 | US_ITS ---
EXAMINATION: US OB follow up DATE: 03/25/2025 09:05 INDICATION: Encounter for supervision of normal . TECHNIQUE: Real-time ultrasound of the pelvis was performed. COMPARISON: Ultrasound 03/04/2025, 08/22/2024 FINDINGS: There is a single living fetus in vertex presentation. The placenta is posterior and fundal. heart rate is 130 beats per minute (bpm). The amniotic fluid index is 13.3 cm, which is normal. The following biometric data were obtained: Biparietal diameter (BPD): 9.2 cm; head circumference (HC): 33.4 cm; abdominal circumference (AC): 34.0 cm; femur length (FL): 7.2 cm. These measurements are concordant. Estimated weight is 3249 g +/- 487 g, which correlates with the 51st percentile when 04/08/25 is used as estimated date of delivery. As single measurements, these parameters are each equal to the following estimated gestational ages: BPD: 37 weeks 3 days. HC: 38 weeks 1 days. AC: 37 weeks 6 days. FL: 36 weeks 5 days. estimated gestational age based solely on measurements from this exam is 37 weeks 4 days +/- 2 weeks 4 days. IMPRESSION: 1. Single living fetus in vertex presentation. 2. Estimated weight is 3249 g +/- 487 g, which correlates with the 51st percentile when 04/08/25 is used as estimated date of delivery. Note that estimated date of delivery based on the ultrasound from 08/22/2024 would be 04/07/25. Reviewed, dictated and finalized at location E. IMPRESSION: 1. Single living fetus in vertex presentation. 2. Estimated weight is 3249 g +/- 487 g, which correlates with the 51st percentile when 04/08/25 is used as estimated date of delivery. Note that estima lisset date of delivery based on the ultrasound from 08/22/2024 would be 04/07/25.
== END 2025-03-25 08:24 | disposition home or self-care (01) ==
LOC: MICIMG 08:23
PROVIDERS: PCP Family Medicine; Visit Provider Obstetrics & Gynecology
DX: Z34.93 Encounter for supervision of normal pregnancy, unspecified, third trimester (principal); Z3A.37 37 weeks gestation of pregnancy
CPT/HCPCS: 76816

== ENCOUNTER 2025-04-08 03:32 | Observation (INO) | payer BC, SELFPAY ==
--- OUTSIDE RECORDS SUMMARY | 2025-04-08 04:20 | XMS_ITS | Clinical Summary ---
Author Organization [facility] Address [address] [facility] [place] [address] Care Team Providers Care General Sales Manager Name Role Phone Unavailable Primary Care Provider Unavailabl e Source Comments [facility],non-owned Affiliates and Associated Physician Practices is amultiple site organization consisting of ambulatory clinics and hospital sitesin [place], [place], [place] and [place]. This disclosure is being madepursuant to the Care Everywhere program and may not contain all information available regarding this patient. Last updated 18.[facility] [employer] Allergies Active Allergy Reactions Criticality Noted Date [...] Type Department Care Team Description 01/12/2025 Telephone [facility] [address] [place] [address] Gianna Ahmadi RN Appointment (Called patient to see if she needed to reschedule FU anatomy appt. ) from Last 3 Months Social History Tobacco Use Types Packs/Day Years Used Date Smoking Tobacco: Never Assessed Estimated Date of Delivery Comme nts Yes 04/10/2025 Based on last me nstrual period of 07/04/2024 Sex and Gender Information Value Date Recorded Sex Assigned at Not on file Legal Sex Female 8:19 AM LEATHER SOFTENER Gender Identity Not on file Sexual Orientation Not on file Last Filed Vital Signs Vital Sign Reading Time Taken Comments Blood Pressure 121/85 08/01/2024 9:00 AM LEATHER SOFTENER Pulse 72 08/01/2024 9:00 AM LEATHER SOFTENER Temperature 37.2 C (99 F) 08/01/2024 8:23 AM LEATHER SOFTENER Respiratory Rate 20 08/01/2024 9:00 AM LEATHER SOFTENER Oxygen Saturation 98% 08/01/2024 9:00 AM LEATHER SOFTENER Inhaled Oxygen Concentration - - Weight 90.7 kg (200 lb) 08/01/2024 8:23 AM LEATHER SOFTENER Height 170.2 cm (5' 7) 08/01/2024 8:23 AM LEATHER SOFTENER Body Mass Index 31.32 08/01/2024 8:23 AM LEATHER SOFTENER Plan of Treatment Health Maintenance Due Date Last Done Comments HIV SCREENING 2011 HEPATITIS C SCREENING 09/03/2014 DTAP/TDAP/TD VACCINES (1 - Tdap) 2015 HEPATITIS B VACCINE (1 of 3 - 19+ 3-dose series) 2015 PAP SMEAR 2017 HPV VACCINE (1 - 3-dose SCDM series) 2023 DEPRESSION SCREENING 07/15/2024 OB-ONE HOUR GLUCOSE 01/02/2025 OB-TDAP CURRENT 01/09/2025 OB-RHOGAM INJECTION 01/16/2025 OB-GROUP B STREP SCREEN 03/06/2025 COVID-19 VACCINE (1 - 2023-2 5 season) 2025 INFLUENZA VACCINE (#1) 2025 ZOSTER VACCINE (1 of 2) 2046 HIB [...] on patient's age to complete this topic Respiratory Syncytial Virus (RSV) Vaccine Pt: or over 60 yrs (No Doses Required) Completed Insurance [employer]
--- NOTE | 2025-04-12 08:00 | PM.OBTRLD ---
OB - Triage/Final Diagnosis Visit Information Comments/Additional reasons for admission: I have assessed the risk for this patient, Mervat Gary Solorio, and determined that she would benefit from observation care. Final Diagnosis (1) False labor: Code(s): O47.9 - False labor, unspecified Status: Acute
== END 2025-04-08 04:26 | disposition home or self-care (01) ==
PROVIDERS: Admitting Provider Obstetrics & Gynecology; Visit Provider Obstetrics & Gynecology
DX: O47.1 False labor at or after 37 completed weeks of gestation (principal); Z3A.39 39 weeks gestation of pregnancy
CPT/HCPCS: G0378; G0379

== ENCOUNTER 2025-04-10 14:28 | Inpatient (IN) | payer BC, SELFPAY ==
[2025-04-10] VITALS (67 sets, daily range): BP systolic 89–148; BP diastolic 61–132; PULSE 76–136; TEMP 36.3–36.7; O2SAT 97–100; BMI 42.1
--- OUTSIDE RECORDS SUMMARY | 2025-04-10 15:19 | XMS_ITS | Clinical Summary ---
Author Organization [facility] Address [address] [facility] [place] [address] Care Team Providers Care Rehabilitation Services Coordinator Name Role Phone Unavailable Primary Care Provider Unavailabl e Source Comments [facility],non-owned Affiliates and Associated Physician Practices is amultiple site organization consisting of ambulatory clinics and hospital sitesin [place], [place], [place] and [place]. This disclosure is being madepursuant to the Care Everywhere program and may not contain all information available regarding this patient. Last updated 18.[facility] [employer] Allergies Active Allergy Reactions Criticality Noted Date [...] Type Department Care Team Description 01/12/2025 Telephone [facility] Maternal & Care [address] [place] [id number] Gianna Ahmadi RN Appointment (Called patient [...] on file Legal Sex Female 8:19 AM ADMINISTRATIVE SUPPORT MANAGER Gender Identity Not on file Sexual Orientation Not on file Last Filed Vital Signs Vital Sign Reading Time Taken Comments Blood Pressure 121/85 08/01/2024 9:00 AM ADMINISTRATIVE SUPPORT MANAGER Pulse 72 08/01/2024 9:00 AM ADMINISTRATIVE SUPPORT MANAGER Temperature 37.2 C (99 F) 08/01/2024 8:23 AM ADMINISTRATIVE SUPPORT MANAGER Respiratory Rate 20 08/01/2024 9:00 AM ADMINISTRATIVE SUPPORT MANAGER Oxygen Saturation 98% 08/01/2024 9:00 AM ADMINISTRATIVE SUPPORT MANAGER Inhaled Oxygen Concentration - - Weight 90.7 kg (200 lb) 08/01/2024 8:23 AM ADMINISTRATIVE SUPPORT MANAGER Height 170.2 cm (5' 7) 08/01/2024 8:23 AM ADMINISTRATIVE SUPPORT MANAGER Body Mass Index 31.32 08/01/2024 8:23 AM ADMINISTRATIVE SUPPORT MANAGER Plan of Treatment Health Maintenance Due Date [...]
[2025-04-10 15:48] LABS: Hematocrit 37.3 % (37.0-47.0); Hemoglobin 12.4 g/dL (12.0-15.0); Immature Granulocyte Percent A 0.5 % (0-0.5); Lymphocytes Absolute Auto 1.22 K/mm3 (0.9-3.2); Mean Corpuscular HGB Conc 33.2 g/dl (32-36); Mean Corpuscular Hemoglobin 29.0 pg (26-34); Mean Corpuscular Volume 87.1 fl (80-100); Nucleated Red Blood Cells Absolute Auto 0.000 K/mm3 (0.0-0.012); Nucleated Red Blood Cells Perc 0.0 % (0.0-0.2); Platelet Count Result 241 k/mm3 (150-375); Red Blood Count 4.28 M/mm3 (4.2-5.4); White Blood Count 12.8 K/mm3 (4.5-10.0)
--- NOTE | 2025-04-10 15:48 | LDADM ---
This patient, Mervat Solorio, was admitted to Labor/Delivery/Recovery 107 on 04/10/25 at 14:28. Plans for labor, pain management and were discussed with patient. Patient/family oriented to hospital policies and general routines including ID bracelet, bed and alarms, visiting hours, pain management, procedures, bathroom and other care routines, personal items, smoking policy, room service/diet and guest tray routines, security routines, and visiting hours. Patient/Family are encouraged to report perceived risks to care and to ask questions if they do not understand what they are told or what they should do. See [employer] for further documentation.
[2025-04-10] MEDS: OXYTOCIN 30 UNITS/NS 500 ML 30 UNITS/500 ML BAG IV CONT (16:31)
[2025-04-10] MEDS: LACTATED RINGERS 1,000 ML 125 ML IV CONT (16:33)
[2025-04-10 16:36] LABS: Syphilis IgG/IgM Antibody Non-Reactive (Nonreactive)
[2025-04-10] MEDS: fentaNYL CITRATE INJ (*CRX) 100 MCG/2 ML VIAL 50 MCG IV PUSH (17:50)
[2025-04-10] MEDS: fentaNYL CITRATE INJ (*CRX) 100 MCG/2 ML VIAL IV PUSH (19:23)
--- NOTE | 2025-04-10 20:51 | P.PNAN_ITS ---
Anes - Eval Pre Procedure Procedure: Labor epidural Date/Time: 04/10/25 20:51 Surgeon: Liyah Preop Diagnosis: Abdominal pain with contractions Pre Op Diagnosis: Contractions Patient Data Age: 29 Gender: F Height: 1.7 m Weight: 122 kg Last Vital Signs Temp 97.4 F L 04/10/25 19:00 Pulse 95 04/10/25 19:46 BP 145/84 H 04/10/25 19:46 Pulse Ox 99 04/10/25 20:51 O2 Del Method Room Air 04/10/25 15:48 Allergies Allergy/AdvReac Type Severity Reaction Status Date / Time azithromycin Allergy Unknown Unknown Verified 04/10/25 17:01 Penicillins Allergy Unknown Hives Verified 04/10/25 17:01 Home Medications ?Medication ?Instructions ?Recorded ?Confirmed ?Type valacyclovir 500 mg tablet 500 mg PO DAILY #90 tabs 04/10/25 Rx (Valtrex) vit no.95-ferrous 1 tablet PO DAILY 03/04/25 04/10/25 History fumarate 28 mg-folic acid 800 mcg tablet () Laboratory Tests 04/10/25 15:39 WBC 12.8 H K/mm3 (4.5-10.0) RBC 4.28 M/mm3 (4.2-5.4) Hgb 12.4 g/dL (12.0-15.0) Hct 37.3 % (37.0-47.0) MCV 87.1 fl (80-100) MCH 29.0 pg (26-34) MCHC 33.2 g/dl (32-36) RDW 14.5 % (11.5-14.5) Plt Count 241 k/mm3 (150-375) MPV 11.0 H fl (7.4-10.4) Immature Gran % (Auto) 0.5 % (0-0.5) Neut % (Auto) 81.3 H % (45.5-73.1) Lymph % (Auto) 9.5 L % (18.3-44.2) Chaves % (Auto) 7.9 % (2.6-8.5) Eos % (Auto) 0.6 % (0-4.4) Baso % (Auto) 0.2 % (0.2-1.2) Lymph # (Auto) 1.22 K/mm3 (0.9-3.2) Chaves # (Auto) 1.0 H K/mm3 (0.1-0.6) Eos # (Auto) 0.1 K/mm3 (0-0.3) Baso # (Auto) 0.0 K/mm3 (0.0-0.1) Abs Immat Gran (auto) 0.06 H K/mm3 (0.00-0.031) Absolute Neuts (auto) 10.4 H K/mm3 (1.3-6.7) Absolute Nucleated RBC 0.000 K/mm3 (0.0-0.012) Nucleated RBC % 0.0 % (0.0-0.2) Syphilis IgG/IgM Ab Non-reactive (Nonreactive) Blood Type O Positive Antibody Screen Negative : gestational age HCG: positive Patient hx anesthesia problems: none Family hx anesthesia problems: none Results Review: All pre-operative results and documents have been reviewed as part of the pre- operative evaluation. [facility] Past Medical History Medical History Anemia Anxiety Vaginal discharge Encounter for screening examination for sexually transmitted disease Depression HSV-1 infection genital BMI 29.0-29.9,adult BMI 25.0-25.9,adult BMI 27.0-27.9,adult Family History Family History Father No problems noted. Mother Abnormal cervical cytology Sibling No problems noted. Social History Social History Smoking status: Never smoker Second hand tobacco smoke exposure: No Alcohol intake: former Drinks per week: 12 Substance use: never Substance use type: does not use Do You Feel Safe in your Home?: Yes Lack of Transportation: No Lack of Food: Never True Current Housing: I Have Housing Concerned About Future Housing: No Difficulty Paying Gas/Electric Bills: No Difficulty Paying for Meds: No Currently Unemployed: No Education: Associate Degree Difficulty w/ Childcare or Family Care: No Living arrangements: alone Additional living arrangements comments: single Occupation/Education: occupation Additional occupation/education comments: division officer [employer] Gender identity (if verbalized by the patient): Female Sexual Orientation (if Verbalized by the Patient): Straight or Heterosexual Spiritual care concerns: No Exam Day of Procedure 04/10/25 20:51 Patient weight: morbidly obese Heart: regular rate and rhythm Lungs: clear to auscultation
[2025-04-11] VITALS (139 sets, daily range): BP systolic 87–155; BP diastolic 54–102; PULSE 77–195; RESP 15–18; TEMP 36.2–38.1; O2SAT 92–100
[2025-04-11] MEDS: ONDANSETRON INJ 4 MG/2 ML VIAL IV PUSH (01:25)
[2025-04-11] MEDS: FAMOTIDINE 20 MG/2 ML VIAL IV PUSH (01:25)
[2025-04-11] MEDS: LACTATED RINGERS 1,000 ML 125 ML IV CONT (04:35)
[2025-04-11] MEDS: ACETAMINOPHEN 500 MG TABLET 1000 MG PO (05:15)
[2025-04-11] MEDS: ceFAZolin 2 GM in SODIUM CHLORIDE 0.9% IV 50 ML 100 ML IVPB (05:30)
--- NOTE | 2025-04-11 09:51 | WPDHPUPDATE1 ---
History and Physical Update Update Date/Time: 04/11/25 09:51 History and Physical has been reviewed, including an updated exam of the patient. There are NO changes in the patient's condition. Risks, benefits, and alternatives have been discussed and questions answered. Patient agrees to proceed with procedure.
--- NOTE | 2025-04-11 09:51 | WPDOBADMIT ---
Obstetrics - Admit Note Admission Note: record reviewed. No pertinent additions to the history and/or any subsequent changes in the physical findings that are not consistent with the expected course of the were found. Additions to the history and/or subsequent changes in the physical findings follow. None.
[2025-04-11] MEDS: OXYTOCIN 30 UNITS/NS 500 ML 30 UNITS/500 ML BAG 125 UNITS IV CONT (09:52)
--- NOTE | 2025-04-11 09:52 | PM.OBPRVD ---
OB - Vaginal Delivery Note Procedure Delivery date: 04/11/25 Intrapartal Events: Chorioamnionitis and Other (meconium stained fluid) Induction method: None Delivery augmentation: Pitocin Delivery monitor: External FHT and Internal Uterine Route of delivery: Episiotomy description: None Laceration Description: Perineal - 2nd Degree Delivery repair: chromic Specimen: Yes Quantitative Blood Loss (ml): 300 Anesthesia type: Epidural Disposition: Floor Complications: No immediate complications Narrative: Patient was prepped and draped usual manner for this procedure. Maternal expulsive efforts delivered vertex over intact perineum. Rest of baby was delivered cord clamped and passed off to the pediatric team in attendance. Placenta delivered spontaneously. Second-degree laceration was noted and approximated using 2-0 chromic in a running interlocking manner on the vaginal tissue, deep tissue and a subcuticular layer with good approximation hemostasis noted. Immediate postoperative mother excellent. Tumble [place] Turret Lathe Operator was working on baby but overall baby was doing well. Baby Gestational Age by Date: 40 gender: Male Weight (pounds): 8 Weight (ounces): 7 presentation: vertex Placenta delivery description: Spontaneous Cord Vessel Description: 3 Vessels
--- NOTE | 2025-04-11 10:14 | S_PTH ---
PATIENT: Mervat Solorio LOC: [facility] U#:[id number] AGE/SX: 29/F ROOM: 288 RE04/10/[address]: Beau Pelletier MD : 1995 BED: 00 DIS: 04/13/2025 SPEC #: [id number] RECD: 04/12/25 07:08 STATUS: RACHEL REQ #: [id number] NANCY: 04/11/25 10:[address]: Beau Pelletier DEPT: [facility] Surgical RECD BY: Evelia Olivares ENTERED: 04/12/25 07:09 SP TYPE: Surgical OTHR DR: UNKNOWN,DOCTOR Tissues: A - Placenta Procedures: Hematoxylin and Eosin Stain Gross and Microscopic Level 5
[2025-04-11] MEDS: IBUPROFEN 600 MG TABLET PO ×2 (10:17→19:29)
[2025-04-11] MEDS: ACETAMINOPHEN 325 MG TABLET 650 MG PO ×2 (10:53→19:28)
[2025-04-11] MEDS: MULTIVIT/MIN/PREN/FOL AC/IRON TABLET 1 TAB PO (11:59)
[2025-04-11] MEDS: BENZOCAINE 20% AER SPR (*SP) 56 GM CAN 1 SPRAY TOPICAL (12:00)
[2025-04-11] MEDS: WITCH HAZEL 40 PADS 1 PAD TOPICAL (12:00)
--- NOTE | 2025-04-11 12:24 | PC.NURSE ---
Patient transferred to post room #288 via wheelchair. Support person present. Oriented to unit, room, information board, rooming in, admission packet and security measures. Patient verbalizes understanding.
[2025-04-11] MEDS: HYDROcodone/acetaminophen (*CRX) 5-325 MG TABLET 1 TAB PO (16:24)
[2025-04-12] MEDS: IBUPROFEN 600 MG TABLET PO ×3 (01:27→19:47)
[2025-04-12] MEDS: ACETAMINOPHEN 325 MG TABLET 650 MG PO ×3 (01:27→19:47)
[2025-04-12 05:39] LABS: Hematocrit 33.7 % (37.0-47.0); Hemoglobin 10.9 g/dL (12.0-15.0)
[2025-04-12 07:25] VITALS: BP 138/79; PULSE 82; RESP 18; TEMP 36.8; O2SAT 97
--- NOTE | 2025-04-12 07:55 | PC.NURSE ---
Patient called out for feeding assistance. Baby is fussy and awake. Mom states she has difficulty latching to the right breast but that latching to the left has gone okay. She uses a cradle hold so that is how we started the attempt. Baby roots and opens but is unable to take the nipple in far enough without assistance. Mom is repositioned to cross cradle hold and shown how to make a 'bite' for baby by compressing the breast. Baby is able to latch easily and maintains well with consistent suckling. Discussed with mom the routine of burping when baby is done on the first breast and offering the second breast if infant desires. Patient states that the latch is not painful and she will call out for assistance with switching breasts if needed. Father is present and supportive. Primary RN updated.
[2025-04-12] MEDS: MULTIVIT/MIN/PREN/FOL AC/IRON TABLET 1 TAB PO (09:34)
--- NOTE | 2025-04-12 13:30 | PC.NURSE ---
Patient called out for feeding assistance. Baby was circumcised and is now sleepy. Reviewed normal behavior after circumcision. When mom attempts to wake him he screams and is unable to settle enough to latch. He then falls asleep again. She just tried independently to latch and was unable. It has been 3 1/2 hours since the last feeding so mom is supported to allow baby another half hour of rest before trying to feed again. She states that she will call out for assistance. Primary RN updated.
--- NOTE | 2025-04-12 14:22 | WPDANLDPN2 ---
Anes-Prog Note L&D Date/Time: 04/12/25 14:22 Comfortable throughout: labor and delivery Neuraxial method: epidural Epidural/Spinal procedure site: clean & non-tender Neuro status: Neuro function grossly intact. Cardiovascular status: normal Respiratory status: normal Airway patency: baseline Mental status: baseline Vital Signs: Last Vital Signs Temp 36.8 C 04/12/25 07:25 Pulse 82 04/12/25 07:25 Resp 18 04/12/25 07:25 BP 138/79 04/12/25 07:25 Pulse Ox 97 04/12/25 07:25 O2 Del Method Room Air 04/12/25 07:50 Pain score (VAS): 0 I/O: Intake & Output 04/11/25 04/12/25 04/12/25 23:59 07:59 15:59 Intake Total 120 Balance 120 Patient feedback: Patient satisfied with anesthetic care.
[2025-04-12] MEDS: DOCUSATE SODIUM 100 MG CAPSULE PO (14:32)
[2025-04-12 19:37] VITALS: BP 132/81; PULSE 89; RESP 18; TEMP 36.3; O2SAT 99
[2025-04-12] MEDS: HYDROcodone/acetaminophen (*CRX) 5-325 MG TABLET 1 TAB PO (22:29)
[2025-04-13] MEDS: ACETAMINOPHEN 325 MG TABLET 650 MG PO ×2 (05:03→11:08)
[2025-04-13] MEDS: IBUPROFEN 600 MG TABLET PO ×2 (05:04→11:07)
[2025-04-13 08:00] VITALS: BP 124/87; PULSE 78; RESP 18; TEMP 36.6; O2SAT 97
--- NOTE | 2025-04-13 08:15 | PC.NURSE ---
Patient called out for a pump flange assessment. Her right nipple is 20-21mm and the left is 21-22mm. She was using a 24mm flange on both breasts. She was given a 27mm to use on the left breast and may try the 27 on the right if she feels like the 24mm is too tight. She has Spectra and Lisa pumps at home. Patient is unsure why the RN started her pumping last night. Baby has not stooled in over 24 hours. Reviewed that the pump can stimulate a greater milk production as well as providing expressed milk to supplement breastfeedings. Outpatient Pharmacy Manager will be here this morning to see baby and discuss feeding plan with parents.
--- NOTE | 2025-04-13 08:44 | PM.OBDSVD ---
DS: Admitting Diagnosis Discharge Date 04/13/2025 Admitting Diagnosis DS: Discharge Diagnosis Discharge Diagnosis (1) , delivered: Code(s): O80 - Encounter for full-term uncomplicated delivery Status: Acute OB - DS: Summary OB Procedures : None OB Procedures Intrapartum: Spontaneous Vag Delivery OB Procedures: : None Peripartum Data Laceration Description: Perineal - 2nd Degree Episiotomy description: None Time Spent with Patient Time attestation: Total time spent providing and/or coordinating discharge services: DS: Data Data Completed and Pending Pending studies at discharge: Pending at discharge 04/11/25 10:14 Surgical [PTH] Routine Discharge Plan Discharge Discharging Clinician: Beau Pelletier Patient Disposition: Home Activity: follow weight bearing status and pelvic rest Diet: as tolerated Patient Instructions: Antibiotic Form Patient Language: Portuguese Stand Alone Forms: General Discharge Information Follow-up/Referrals: Beau Pelletier MD [Physician, [employer]] - 4 Weeks Discharge Medications: New ibuprofen 600 mg Tablet 600 mg PO Q6H PRN (Reason: Cramping) Qty: 30 0RF Continued PNV no.95-ferrous fumarate-FA [] 28 mg iron- 800 mcg tablet 1 tablet PO DAILY Discontinued valacyclovir [Valtrex] 500 mg tablet 500 mg PO DAILY Qty: 90 1RF Patient Comments: Will start taking again on 03/07/25 Date of admission: 04/10/25 14:28 Primary Care Provider: UNKNOWN,DOCTOR Admitting Provider: Beau Pelletier Attending physician on admission: Beau Pelletier Condition: Stable
--- NOTE | 2025-04-13 11:00 | PC.NURSE ---
Patient called out for feeding assistance. Baby was sleeping when I went to the room and mom said he had fussed a little but then was sleeping peacefully again. We reviewed that formula will digest a little slower than breast milk and baby may not be ready to eat again for 3-4 hours. Patient is encouraged to call out for feeding assistance when baby is awake and ready to eat. Patient is tearful and seems upset that baby is needing supplemented due to weight loss and decreased output. We reviewed how to safely syringe feed baby with the pumped colostrum she has at the bedside. Father of infant is present and involved with feedings. Primary RN updated.
[2025-04-13] MEDS: MULTIVIT/MIN/PREN/FOL AC/IRON TABLET 1 TAB PO (11:07)
[2025-04-13] MEDS: DOCUSATE SODIUM 100 MG CAPSULE PO (11:07)
--- NOTE | 2025-04-13 17:30 | PC.NURSE ---
discharged to a [facility]. Supplies given and prescriptions sent to pharmacy
[2025-04-15 11:51] VITALS: BP 140/89; PULSE 83; RESP 18; TEMP 36.3; O2SAT 98
== END 2025-04-13 17:30 | disposition home or self-care (01) | DRG 805 ==
LOC: ANHLDR 15:18 → ANHOB2 04-11 14:20
PROVIDERS: Admitting Provider Obstetrics & Gynecology; Visit Provider Obstetrics & Gynecology
DX: O98.32 Other infections with a predominantly sexual mode of transmission complicating childbirth (principal); O41.1230 Chorioamnionitis, third trimester, not applicable or unspecified; Z37.0 Single live birth; Z3A.40 40 weeks gestation of pregnancy; O77.0 Labor and delivery complicated by meconium in amniotic fluid; A60.09 Herpesviral infection of other urogenital tract; O70.1 Second degree perineal laceration during delivery
CPT/HCPCS: 36415; 84112; 85014; 85018; 85025; 86593; 86850; 86900; 86901; 88307; J0690; A9270; J2405; J2590; J2795; J3010; J7120

== ENCOUNTER 2025-05-15 13:01 | Outpatient (CLI) | payer BC, SELFPAY ==
--- NOTE | 2025-05-15 13:10 | PC.NURSE ---
In- 1300 Out- 1415 Reason for visit: latch check, concerns about milk supply, assess flange size History: Mervat delivered vaginally 1 month ago. Her was unremarkable and her delivery was without complications. Patient is a single mother living alone. Father of the baby is minimally involved in his care. She has good friend support but does not have anyone that can assist with nighttime feedings and care for baby. She is struggling with depression and Dr. Pelletier has prescribed sertraline and referred her to Saritha Davila CNM for mental health services. She has 2 more months before she must return to work. 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 She will be working 12 hour day shifts when she returns to work. History: Noam was born at 40 weeks and 1 day gestation. He initially had to supplement with formula due to weight loss and decreased stools. After discharge, he gained weight appropriately and mom was able to reduce supplementation with formula and use more breast milk in addition to feeding at breast. She does not have a large stock of expressed milk and will use formula if needed. She is mostly only at night and pumping during the day. She desires to have full feedings at breast during the night so that she has minimal awake time and is able to rest. She struggles with having to prepare and wash bottles and is not able to pump after nighttime feedings due to time constraints and lack of support. Baby is taking 3-3.5 ounces at each feeding. Observations: Mervat is able to independently latch Noam. He maintains the latch well and has a suck/swallow ratio of 2-3:1. It is expected that he has a 1:1 ratio at this age and likely needs more practice at breast to become more efficient. He takes frequent pauses after short sucking bursts. Baby became sleepy during the second half of the feeding and needed to be stimulated to wake and continue nursing. Mom is encouraged to add breast compressions to help get him going again and to assist with fully emptying the breast at each feeding. Noam transferred a total of 61mls in 32 minutes. He needs 3-3.5 ounces at each feeding (Pocket Guide for Management weight chart) so mom pumps and supplements with additional breast milk. She was assessed for flange size and pump technique today and appears to have the correct flanges and uses the highest comfortable suction setting. She measures at 22mm on the right nipple and 21mm on the left. She is using the 24mm flanges but is encouraged to try a different flange size (27mm) if she starts feeling pain at any time. Today after the feeding, she was able to pump around 1.5-2ounces and baby took only a small amount (15ml) of the pumped milk before falling asleep. He was content and slept in his car seat as mom packed up to leave. weight: 3670g Lowest weight: 3575g Last weight: 10lbs 4oz (at pedi office yesterday) Pre-feed weight: 4664g Post-feed weight: 4725g Total transfer: 61ml Plan of Care: Patient was provided with information on increasing her milk supply and returning to work. She can try power pumping (instructions given) and breast compressions. It is recommended that she pump to empty at each pumping session, allowing the milk to stop flowing. If she is able to pump at all after her nighttime breast feedings, this could assist with boosting her milk supply. She has a Spectra pump as well as a Ilsa wearable pump. The Lisa does not provide as much suction and she does not get as much volume with it as she does with the Spectra. She is educated on hands on pumping to increase volume and fat content of milk. Discussed normal changes to her milk now that she has reached a mature milk supply. Mervat is supported to know that she is making milk that provides vital, tailored nutrients to baby, but that he needs a greater volume than he can transfer at breast at this time. With practice and by boosting her milk supply, he should be able to achieve complete feedings at breast. Follow up plans: Mervat is encouraged to come for another weighted feed prior to returning to work if desired. She knows that she can call us for any additional questions or concerns. She has seen Dr. Pelletier and Dr. Buck recently. She is taking her sertraline and has information regarding counseling with Saritha Davila CNM. Encouraged her to seek support from friends to assist with care when able. Patient seems tired but in good spirits and shows a great escalera with baby. will contact her next week to follow up and see how things are going. notes from today will be faxed to Dr. Pelletier and Dr. Buck.
== END 2025-05-15 13:02 | disposition home or self-care (01) ==
LOC: ANHOBOP 13:02
PROVIDERS: PCP Family Medicine; Visit Provider Pediatrics
DX: Z39.1 Encounter for care and examination of lactating mother (principal); F32.A Depression, unspecified
CPT/HCPCS: 99202; G0463